=== PATIENT | female | born 1945 | race Caucasian/White ===

== ENCOUNTER 2019-04-23 10:09 | Outpatient (CLI) | payer MEDICARE, OTHER, SELFPAY ==
--- NOTE | 2019-04-23 10:17 | MM_ITS ---
WS: [id number] BILATERAL SCREENING DIGITAL MAMMOGRAM WITH CAD HISTORY: SCREENING COMPARISON: 03/26/2011 Bilateral CC and MLO views submitted. Computer aided detection analyzed. Breast composition: There are scattered areas of fibroglandular density. No suspicious masses, microc alcifications or architectural distortion. Benign calcifications in each breast. MM/[place] [id number] IMPRESSION: BI-RADS: 2-Benign FOLLOW UP: 1 Year Follow-up
== END 2019-04-23 10:10 | disposition home or self-care (01) ==
PROVIDERS: Family Provider Obstetrics & Gynecology; Visit Provider Physician Assistant
DX: Z12.31 Encounter for screening mammogram for malignant neoplasm of breast (principal)
CPT/HCPCS: 77067

== ENCOUNTER 2020-08-08 09:04 | Outpatient (CLI) | payer MEDICARE, OTHER, SELFPAY ==
[2020-08-08 09:29] VITALS: BMI 21.4
--- NOTE | 2020-08-08 09:53 | ECG_ITS ---
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 Interpretive Statements NAME OF STUDY: LEXISCAN SESTAMIBI STRESS TEST INDICATION: [sob on exertion, ] Procedure: At the baseline, the blood pressure was 155/96 mmHg with a heart rate of 70 bpm. The electrocardiogram showed normal sinus rhythm, normal axis with T wave changes including T wave inversions in leads V3-V6. The Lexiscan was infused over a period of 20 seconds. A total of 0.4 mg of Lexiscan was infused. The stress phase was continued for a total of 5 minutes. Heart rate was at the end of stress phase was 93 bpm and a blood pressure of 148/69 mmHg. The EKG at the peak infusion revealed since normal sinus rhythm with development of left bundle branch block related to tachycardia. Sestamibi was injected 20 seconds after the Lexiscan infusion. Blood pressure at the end of recovery phase was 142/68 mmHg with a heart rate of 87 bpm. Conclusion: 1. Normal EKG response to Lexiscan infusion 2. No Lexiscan induced chest pain or cardiac arrhythmia. 3. Normal blood pressure and heart rate response. 4. Sestamibi/sestamibi perfusion scan pending; see separate report. Electronically Signed On 09-25-2020 17:59:38 CDT by Marvel Spence M.D. [email or web address] [facility].[email or web address]/store/[id number]
--- NOTE | 2020-08-08 09:54 | NMCV_ITS ---
NM bri perf SPECT r/s* [id number] Kisha Thomas Age: 74 Gender: F : 1945 Exam Date: 08/08/2020 09:54 Ordering Phys: Vania Ridley Technologist: JOSETTE De Leon Exam Location: [facility] Indications: SOB on exertion STRESS TEST Please see separate stress test report in [facility] for full findings IMAGE PROTOCOL Rest/Stress 1 Lexiscan Day Radiopharmaceutical Dose (mCi) Administration Site Administered by Rest: Tc-99m 11.0 IV JOSETTE De Leon Sestamibi Stress:Tc-99m 32.3 IV JOSETTE Plummer Sestamibi Rest: 08-Aug-2020 60 Discovery 630 Stress: 08-Aug-2020 30 Discovery 630 0.4mg Lexiscan. Images obtained in supine and prone position. SPECT RESULTS Technical Quality: Excellent Raw Data Analysis: Normal Image Corrections: No attenuation or motion correction applied Summed Stress Score: 1 Summed Rest Score: 7 Summed Difference Score: 0 PERFUSION FINDINGS There is homogenous uptake of radiotracer throughout the myocardium. Decreased uptake of radiotracer in the apical, apical lateral and apical inferior colon on rest that resolved with stress, likely artifact FUNCTIONAL RESULTS (calculated via Gated SPECT) Stress Image LV EF (%): 65 Stress EDV (mL):69 TID: 1.03 Stress ESV (mL):24 FUNCTIONAL FINDINGS: There is normal left ventricular systolic function. IMPRESSIONS 1. Normal myocardial perfusion image without evidence of ischemia 2. LV systolic function is normal Marvel Spence MD (Electronically Signed) Final Date: 09 August 2020 10:23 S
[2020-08-08] MEDS: regadenoson 0.4 Mg/5 ml Syringe IVP (12:01)
--- NOTE | 2020-08-08 12:02 | PC.NURSE ---
pt hooked to ekg, lbbb rhythm appeared, called dwayne butler and received verbal order for lexiscan. pt converted to normal rhythm before start of lexiscan, withing a minute of pushing lexiscan she converted back into lbbb.
[2020-08-08 12:12] VITALS: BP 142/68; PULSE 86
== END 2020-08-08 09:05 | disposition home or self-care (01) ==
LOC: RAD 09:09 → CDL 09:53
PROVIDERS: PCP Physician Assistant; Visit Provider Physician Assistant
DX: R06.02 Shortness of breath (principal)
CPT/HCPCS: 78452; 93017; A9500; J2785

== ENCOUNTER 2020-09-01 09:10 | Outpatient (CLI) | payer MEDICARE, OTHER, SELFPAY ==
--- NOTE | 2020-09-01 09:30 | USCV_ITS ---
Kisha Thomas Age: 74 Gender: F : 1945 Exam Date: 09/01/2020 09:33 Ordering Phys: Marvel Spence M.D ([email or web address]) Technologist: Vania Reyes Exam Location: [facility] – [place] Indication: SOB BP: 140 / 70 HR: 61 Rhythm: Sinus Technical Quality: Adequate MEASUREMENTS (Male / Female) Normal Values 2D ECHO LV Diastolic Diameter PLAX 4.0 cm 4.2 - 5.9 / 3.9 - 5.3 cm LV Systolic Diameter PLAX 2.8 cm IVS Diastolic Thickness 1.7 cm 0.6 - 1.0 / 0.6 - 0.9 cm IVS Systolic Thickness 2.4 cm LVPW Diastolic Thickness 1.4 cm 0.6 - 1.0 / 0.6 - 0.9 cm LVPW Systolic Thickness 1.9 cm LVOT Diameter 2.0 cm LV Ejection Fraction 2D Teich 57.0 % LV Ejection Fraction MOD 2C 54.6 % LV Ejection Fraction 2C AL 53.2 % LA Diameter 2.6 cm LA Width 2.3 cm LA Height 2.4 cm RA Width 2.1 cm RA Height 2.5 cm Aorta at Sinotubular Diameter 3.0 cm M-MODE LV Diastolic Diameter MM 4.6 cm 4.2 - 5.9 / 3.9 - 5.3 cm LV Systolic Diameter MM 3.3 cm LV Ejection Fraction MM Teich 54.9 % IVS Diastolic Thickness MM 1.3 cm 0.6 - 1.0 / 0.6 - 0.9 cm IVS Systolic Thickness MM 1.8 cm LVPW Diastolic Thickness MM 1.1 cm 0.6 - 1.0 / 0.6 - 0.9 cm LVPW Systolic Thickness MM 1.3 cm Aortic Annulus Diameter 2.8 cm LA Ao Ratio MM 0.9 MV E Point Septal Separation 0.6 cm DOPPLER AV Peak Velocity 90.0 cm/s LVOT Peak Velocity 67.0 cm/s AV Area Cont Eq vti 2.1 cm squared AV Area Cont Eq pk 2.4 cm squared MV Peak Velocity 104.0 cm/s MV Area PHT 5.1 cm squared Mitral E to A Ratio 0.9 MV E' Velocity 77.0 cm/s TR Peak Velocity 239.8 cm/s TR Peak Gradient 23.0 mmHg TR Mean Velocity 190.9 cm/s TR Mean Gradient 15.9 mmHg TR Velocity Time Integral 80.3 cm TV Peak E Velocity 53.0 cm/s Right Atrial Pressure 3.0 mmHg Pulmonary Artery Systolic Pressu 26.0 mmHg PV Peak Velocity 79.0 cm/s RV Acceleration Time 0.1 s RV Ejection Time 0.3 s RV AcT/ET 0.3 FINDINGS Left Ventricle Normal left ventricular size. LV systolic function is borderline normal with EF of 50-55%. No regional wall motion abnormalities. Right Ventricle The right ventricle is normal in size and function. Right Atrium The right atrium is normal in size. Left Atrium The left atrium is normal in size. Mitral Valve Structurally normal mitral valve without significant stenosis or prolapse. There is mild mitral regurgitation. Aortic Valve Structurally normal aortic valve without significant sclerosis or stenosis. There is mild to moderate aortic regurgitation. Tricuspid Valve Structurally normal tricuspid valve without significant stenosis. Mild tricuspid regurgitation. RVSP is 25-30mmHg. Pulmonary artery systolic pressure is normal. Pulmonic Valve Structurally normal pulmonic valve without significant stenosis. There is mild pulmonic regurgitation. Pericardium Normal pericardium without effusion. Aorta Normal ascending aorta dimension. CONCLUSIONS LV systolic function is normal with EF of 50-55%. Mild mitral regurgitation Mild to moderate aortic regurgitation Mild pulmonary regurgitation No comparison studies are available Marvel Spence MD (Electronically Signed) Final Date: 05 September 2020 18:22 S
== END 2020-09-01 09:11 | disposition home or self-care (01) ==
LOC: US 09:11
PROVIDERS: PCP Physician Assistant; Visit Provider Internal Medicine
DX: R06.02 Shortness of breath (principal); I08.0 Rheumatic disorders of both mitral and aortic valves
CPT/HCPCS: 93306

== ENCOUNTER → 2020-10-26 13:40 | Outpatient (BNVA) | payer MEDICARE, OTHER, SELFPAY | PROVIDERS: PCP Physician Assistant; Visit Provider Internal Medicine | DX: I10 Essential (primary) hypertension (principal); R06.02 Shortness of breath; I44.7 Left bundle-branch block, unspecified; R06.00 Dyspnea, unspecified; I35.1 Nonrheumatic aortic (valve) insufficiency | CPT/HCPCS: 84439; 84443 ==

== ENCOUNTER 2022-05-10 09:19 | Emergency (ER) | payer MEDICARE, OTHER, SELFPAY ==
--- NOTE | 2022-05-10 09:28 | ECG_ITS ---
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 Measurements Intervals Marion Rate: 71 P: 41 MA: 142 QRS: 18 QRSD: 102 T: 43 QT: 377 QTc: 411 Interpretive Statements SINUS RHYTHM NONSPECIFIC T-WAVE ABNORMALITY No previous ECG available for comparison Electronically Signed On 05-10-2022 23:37:46 CELL SUPPORT OPERATOR by Renaldo Cornelius M.D. [email or web address] Discovery[facility].[employer]O/store/[id number]
--- NOTE | 2022-05-10 09:28 | XR_ITS ---
WS: [id number] Portable AP upright chest, 05/10/2022 Clinical Data: dyspnea/cough Comparison: Two-view chest, 07/14/2020 Findings: There is a faint patchy right lower lobe opacity which could represent atelectasis and/or m inimal pneumonia. The left lung is clear. No nodules, masses or effusions are seen. The heart is norm al. The aortic arch and descending thoracic aorta show mild calcification and tortuosity. There are m onitor leads on the chest wall. There is a dextroscoliosis of the thoracic spine. XR/XR chest 1V portable [id number] Impression: 1. Minimal right lower lobe opacity which could represent atelectasis and/or pn eumonia. 2. Atherosclerosis.
[2022-05-10 09:30] VITALS: BP 173/93; PULSE 66; RESP 15; O2SAT 96; BMI 21.4
--- NOTE | 2022-05-10 09:56 | ED_ITS ---
HPI - General Adult General: Chief complaint: Altered Mental Status Stated complaint: cough/AMS/sweats Time Seen by Provider: 05/10/22 09:27 Source: patient Mode of arrival: ambulatory History of Present Illness: 76-year-old female who is a very poor historian. For initially tells me she just does not feel well and is unable to expound on much delay start doing her review of systems with her. Have been able to get out of her that she has had some memory issues recently difficulty sleeping and a mild nonproductive cough that is new and different. She generally feels weak but has no specific areas of weakness she has been able to ambulate but feels very unsteady on her feet no falls no chest pain no abdominal pain no dysuria urgency or frequency. Onset (ago): day(s) (5) Severity: mild Relieving factors: none Exacerbating factors: none Associated symptoms: Reports cough, malaise, nausea, short of breath and other (Dizziness); Deny chest pain, confusion, diaphoresis, decreased appetite, dyspnea, fevers/chills, headache(s), rash, palpitations, seizures, syncope, vomiting or weakness Treatments prior to arrival: none Review of Systems Const: Reports: malaise; Denies: fever(s), chills or diaphoresis ENMT: Denies: throat pain, ear or mastoid pain, nasal discharge or nasal congestion Card: Denies: chest pain, palpitations or syncope Resp: Denies: dyspnea GI: Reports: nausea; Denies: vomiting : Denies: flank pain, difficulty voiding, dysuria, urinary frequency or urinary urgency Skin/Breast: Denies: rash Neuro: Reports: difficulty walking and dizziness; Denies: headache(s) or confusion PFSH ED PFSH: Medical History Aortic regurgitation Hypertension Left bundle branch block Family History Father CAD (coronary artery disease) Mother CAD (coronary artery disease) Social History Smoking and tobacco status: never smoked Alcohol intake: never Physical Exam Const: GENERAL APPEARANCE: cooperative and comfortable ORIENTATION/CONSCIOUSNESS: Yes awake, Yes oriented to person, Yes oriented to place and Yes oriented to time HENMT: COMMON NORMALS: normocephalic, atraumatic and hearing grossly normal bilaterally HEAD & SCALP: normocephalic and atraumatic Resp: COMMON NORMALS: normal respiratory effort, No retractions, No use of accessory muscles and clear to auscultation bilaterally AUSCULTATION: clear to auscultation bilaterally Cardio: COMMON NORMALS: regular rate, regular rhythm and No murmurs present (Cardio) RATE: regular rate RHYTHM: regular rhythm GI: COMMON NORMALS: Soft to palpation and No hepatosplenomegaly present AUSCULTATION: Yes normoactive bowel sounds PALPATION: Yes Soft to palpation, No Tenderness to palpation present (GI), No Guarding due to palpation present (GI) and Yes No hepatosplenomegaly present Extremity: COMMON NORMALS: normal to inspection, capillary refill normal, no clubbing, cyanosis or edema, no calf tenderness and no pedal edema Neuro: SENSORIUM/ORIENTATION: Yes oriented to person, Yes oriented to place and Yes oriented to time Skin: COMMON NORMALS: no rashes or lesions noted GENERAL SKIN EXAM: no rashes or lesions noted Course Vital Signs: Vital signs: Vital Signs Pulse Rate 78 05/10/22 13:49 Respiratory Rate 16 05/10/22 13:49 Blood Pressure 148/81 05/10/22 13:49 Pulse Oximetry 93 05/10/22 13:49 Oxygen Delivery Me thod 05/10/22 09:30 MDM - General Adult Medical Decision Making Labs imaging and EKG reviewed cardiac enzymes negative EKG does not show any acute changes neurologically she is fully intact there is no sign of any neurologic deficits suggestive of stroke. We will discharge the patient home. Have her follow-up with her primary care doctor if she has further concerns about cognitive issues she may need to be further evaluated. Return if she has further problems for Medical Records I reviewed the patient's medical records. Lab Data I reviewed the patient's lab results. 05/10/22 10:00 05/10/22 10:00 Radiology Impressions Chest X-Ray 05/10/22 09:28 Impression: 1. Minimal right lower lobe opacity which could represent atelectasis and/or pneumonia. 2. Atherosclerosis. Laboratory Results WBC 7.0 10^3/uL (4.0-10.0) 05/10/22 10:00 RBC 4.36 10^6/uL (4.1-5.3) 05/10/22 10:00 Hgb 12.8 g/dL (11.5-15.3) 05/10/22 10:00 Hct 38.8 % (37.0-47.0) 05/10/22 10:00 MCV 89.0 fl (81-99) 05/10/22 10:00 MCH 29.4 pg (28.0-34.0) 05/10/22 10:00 MCHC 33.0 g/dL (30.0-36.0) 05/10/22 10:00 RDW 12.7 % (12.1-15.1) 05/10/22 10:00 Plt Count 214 10^3/cmm (130-400) 05/10/22 10:00 MPV 10.7 fL (7.4-10.4) H 05/10/22 10:00 Neut % (Auto) 73.7 % 05/10/22 10:00 Lymph % (Auto) 16.5 % 05/10/22 10:00 Blaine % (Auto) 6.4 % 05/10/22 10:00 Eos % (Auto) 0.4 % 05/10/22 10:00 Baso % (Auto) 0.6 % 05/10/22 10:00 Neut # (Auto) 5.15 10^3/uL (1.8-7.7) 05/10/22 10:00 Lymph # (Auto) 1.2 10^3/uL (0.8-4.8) 05/10/22 10:00 Blaine # (Auto) 0.5 10^3/uL (0.2-0.9) 05/10/22 10:00 Eos # (Auto) 0.0 10^3/uL (0.0-0.8) 05/10/22 10:00 Baso # (Auto) 0.0 10^3/uL (0.0-0.1) 05/10/22 10:00 Nucleated RBC % (auto) 0 % 05/10/22 10:00 Nucleated RBCs # 0.0 /100WBC 05/10/22 10:00 Specimen Type Arterial 05/10/22 10:10 Sample Site Radial, right 05/10/22 10:10 ABG pH 7.46 (7.35-7.45) H 05/10/22 10:10 ABG pCO2 34.5 mmHg (35-45) L 05/10/22 10:10 ABG pO2 70.8 mmHg (80.0-100.0) L 05/10/22 10:10 ABG HCO3 24.4 mmol/L (22-26) 05/10/22 10:10 ABG O2 Saturation 95.8 05/10/22 10:10 ABG Base Excess 0.9 mmol/L (-2.0-2.0) 05/10/22 10:10 Jacobo Test Pos 05/10/22 10:10 A-a O2 Gradient 4.7 mmHg (5-10) L 05/10/22 10:10 Hematocrit 37.7 % (37-47) 05/10/22 10:10 Hgb O2 Saturation 94.6 % (95-100) L 05/10/22 10:10 Carboxyhemoglobin 1.0 %THgb (0.4-20.1) 05/10/22 10:10 Methemoglobin 0.3 % (0.4-1.5) L 05/10/22 10:10 Total Hemoglobin 12.3 g/dL (12-16) 05/10/22 10:10 Sodium 141.0 mmol/L (131-143) 05/10/22 10:10 Potassium 3.5 mmol/L (3.5-5.0) 05/10/22 10:10 Glucose 112.0 mg/dL (70-115) 05/10/22 10:10 Ionized Calcium 1.2 mmol/L (1.1-1.4) 05/10/22 10:10 O2 Delivery Device Room air 05/10/22 10:10 FiO2 21.0 % 05/10/22 10:10 Hr Manager ID glc 05/10/22 10:10 Sodium 139 mmol/L (136-145) 05/10/22 10:00 Potassium 3.4 mmol/L (3.5-5.1) L 05/10/22 10:00 Chloride 101 mmol/L (98-107) 05/10/22 10:00 Carbon Dioxide 25 mmol/L (22-29) 05/10/22 10:00 Anion Gap 16.4 (5-19) 05/10/22 10:00 BUN 17 mg/dL (8-23) 05/10/22 10:00 Creatinine 0.6 mg/dL (0.5-0.9) 05/10/22 10:00 GFR Calculation Not Reportable 05/10/22 10:00 Glucose 113 mg/dL (65-115) 05/10/22 10:00 Calculated Osmolality 290 mOsm/kg (285-295) 05/10/22 10:00 Calcium 9.3 mg/dL (8.5-10.5) 05/10/22 10:00 Total Bilirubin 0.7 mg/dL (0.15-1.2) 05/10/22 10:00 AST 20 U/L (0-32) 05/10/22 10:00 ALT 14 U/L (0-33) 05/10/22 10:00 Alkaline Phosphatase 104 U/L (35-105) 05/10/22 10:00 Troponin T Baseline 6 ng/L (0-10) 05/10/22 10:00 Troponin T 120 Minute 6.00 ng/L (0-10) 05/10/22 12:06 Delta Troponin T 0 ABS# (0-10) 05/10/22 12:06 Total Protein 7.4 g/dL (6.6-8.7) 05/10/22 10:00 Albumin 4.0 g/dL (3.5-5.2) 05/10/22 10:00 Globulin 3.4 g/dL (1.3-4.6) 05/10/22 10:00 Discharge Plan Discharge Patient Disposition: Home Clinical Impression: Weakness, Hypertension, Memory loss Condition: Stable Prescriptions: No Action No Known Home Medications Discharge Orders: Discharge ED (Routine); Ordered 05/10/22 Ordered By: Wood Cohen Referrals: Vania Ridley PA [Primary Care Provider] - Discharge Diet: Usual diet Discharge Activity: Increase activity as tolerated Patient Instructions: Opioid Safety, Pain Management Activity Restrictions/Additional Instructions: You are seen today with a complaint of generalized weakness. Your cardiac enzymes CBC and electrolytes were all normal. Chest x-ray was unremarkable. Neurologic exam was not indicative of a stroke. We will discharge you home for now and have you follow-up with your primary care doctor if you continue to have memory issues you should follow-up your primary care doctor who can further evaluate. Coding Level of Care Code ED Food And Beverage Associate for Mathew Temple
[2022-05-10 10:15] LABS: Basophils % 0.6 %; Eosinophils % 0.4 %; Hematocrit 38.8 % (37.0-47.0); Hemoglobin 12.8 g/dL (11.5-15.3); Lymphocytes # 1.2 10^3/uL (0.8-4.8); Lymphocytes % 16.5 %; Mean Corpuscular Hemoglobin 29.4 pg (28.0-34.0); Mean Platelet Volume 10.7 fL (7.4-10.4); Monocytes # 0.5 10^3/uL (0.2-0.9); Monocytes % 6.4 %; Neutrophils # 5.15 10^3/uL (1.8-7.7); Neutrophils % 73.7 %; Nucleated Red Blood Cells % 0 %; Platelet Count 214 10^3/cmm (130-400); Red Blood Count 4.36 10^6/uL (4.1-5.3); Red Cell Distribution Width 12.7 % (12.1-15.1)
[2022-05-10 10:19] LABS: ABG PCO2 34.5 mmHg (35-45); ABG PH Result 7.46 (7.35-7.45); Alveolar-Arterial Oxygen Gradi 4.7 mmHg (5-10); Arterial Blood Gas Hematocrit 37.7 % (37-47); Base Excess ABG 0.9 mmol/L (-2.0-2.0); Blood Gas Allen Test Pos; Blood Gas Operator Identificat glc; Blood Gas Sample Site Radial, right; Blood Gas Sample Type Arterial; HCO3 ABG 24.4 mmol/L (22-26); HGB O2 Sat 94.6 % (95-100); Ionized Calcium Level - ABG 1.2 mmol/L (1.1-1.4); Methemoglobin 0.3 % (0.4-1.5); Oxygen Device ROOM AIR; Oxygen Saturation ABG 95.8; PO2 ABG 70.8 mmHg (80.0-100.0); Potassium Level - ABG 3.5 mmol/L (3.5-5.0); Total Hemoglobin 12.3 g/dL (12-16)
--- NOTE | 2022-05-10 10:22 | PC.PHAR ---
pt and pts friend states the pt takes no medications-[facility] amlodipine 10mg daily on 10/18/21 90d/s-[facility] states not filled medications for the pt
[2022-05-10 10:35] LABS: Alanine Aminotransferase 14 U/L (0-33); Alkaline Phosphatase 104 U/L (35-105); Anion Gap 16.4 (5-19); Aspartate Amino Transferase 20 U/L (0-32); Blood Urea Nitrogen 17 mg/dL (8-23); Calcium 9.3 mg/dL (8.5-10.5); Carbon Dioxide 25 mmol/L (22-29); Chloride 101 mmol/L (98-107); Globulin 3.4 g/dL (1.3-4.6); Glucose 113 mg/dL (65-115); Osmolality Calculated 290 mOsm/kg (285-295); Potassium 3.4 mmol/L (3.5-5.1); Sodium 139 mmol/L (136-145); Total Bilirubin 0.7 mg/dL (0.15-1.2); Total Protein 7.4 g/dL (6.6-8.7)
[2022-05-10 11:18] LABS: Troponin(5th) Baseline 6 ng/L (0-10)
--- NOTE | 2022-05-10 12:58 | ECG_ITS ---
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 Measurements Intervals Rayle Rate: 63 P: 52 MN: 131 QRS: 17 QRSD: 111 T: 10 QT: 409 QTc: 421 Interpretive Statements SINUS RHYTHM MODERATE INTRAVENTRICULAR CONDUCTION DELAY [110+ ms QRS DURATION] Compared to ECG 05/10/2022 09:50:44 Intraventricular conduction delay now present T-wave abnormality no longer present Electronically Signed On 05-10-2022 23:53:04 SCHOOL OCCUPATIONAL THERAPIST by Renaldo Cornelius M.D. [id number]
[2022-05-10 13:13] LABS: Troponin 5 2HR Delta 0 ABS# (0-10)
[2022-05-10 13:25] VITALS: BP 128/73; PULSE 84; RESP 16; O2SAT 94
[2022-05-10 13:49] VITALS: BP 148/81; PULSE 78; RESP 16; O2SAT 93
== END 2022-05-10 13:51 | disposition home or self-care (01) ==
PROVIDERS: Emergency Provider Family Medicine; PCP Physician Assistant
DX: R53.1 Weakness (principal); I10 Essential (primary) hypertension; R41.3 Other amnesia; I70.90 Unspecified atherosclerosis
CPT/HCPCS: 36415; 36600; 71045; 80051; 80053; 82330; 82805; 84484; 85025; 87040; 93005; 99285

== ENCOUNTER → 2022-06-19 08:45 | Outpatient (BNVA) | payer MEDICARE, OTHER, SELFPAY | PROVIDERS: PCP Physician Assistant; Referring Provider Physician Assistant; Visit Provider Dermatology | DX: C44.41 Basal cell carcinoma of skin of scalp and neck (principal); D23.39 Other benign neoplasm of skin of other parts of face; L57.0 Actinic keratosis; L82.1 Other seborrheic keratosis; D22.9 Melanocytic nevi, unspecified; L57.8 Other skin changes due to chronic exposure to nonionizing radiation; L81.4 Other melanin hyperpigmentation ==

== ENCOUNTER 2022-07-11 09:00 | Outpatient (CLI) | payer MEDICARE, OTHER, SELFPAY ==
--- NOTE | 2022-07-11 09:13 | MR_ITS ---
WS: [id number] MRI BRAIN WITH AND WITHOUT CONTRAST HISTORY: ALTERED MENTAL STATUS COMPARISON: None available. TECHNIQUE: Multiplanar imaging performed through the brain with MultiHance 12 ml's IV. No acute infarcts are seen. Myers-white matter differentiation is well preserved. There are very few s mall T2 and FLAIR signal hyperintensities related to small vessel ischemic disease. Slightly greater distribution LEFT frontal lobe. No large territory infarct. Very minimal atrophy and volume loss. No susceptibility artifacts or prior lacunar infarcts. Ventricles and extra-axial spaces are normal. Clivus and pituitary gland are normal. Visualized posterior fossa and brainstem are also normal. Postcontrast images are negative for masses or vascular malformations. Dural venous sinuses are normal. Paranasal sinuses: Well aerated with no significant disease. Mastoid air cells: Normal. Calvarium and scalp: Normal. MR/MR head wo/w con [id number] IMPRESSION: 1. Normal diffusion imaging. No evidence for an acute infarct. 2. Very minimal small vessel ischemic type changes appropriate for the patient 's age. 3. No mass or abnormal enhancement.
[2022-07-11] MEDS: gadobenate dimeglumine 20 mL vial IV (10:53)
== END 2022-07-11 09:01 | disposition home or self-care (01) ==
LOC: RAD 09:06
PROVIDERS: PCP Physician Assistant; Visit Provider Physician Assistant
DX: R41.82 Altered mental status, unspecified (principal)
CPT/HCPCS: 70553; A9577

== ENCOUNTER → 2022-07-16 07:55 | Outpatient (BNVA) | payer MEDICARE, OTHER, SELFPAY | PROVIDERS: PCP Physician Assistant; Visit Provider Dermatology | DX: C44.41 Basal cell carcinoma of skin of scalp and neck (principal) | CPT/HCPCS: 12042; 17311; 17312 ==

== ENCOUNTER → 2022-07-27 08:03 | Outpatient (BNVA) | payer MEDICARE, OTHER, SELFPAY | PROVIDERS: PCP Physician Assistant; Visit Provider Dermatology | DX: Z48.02 Encounter for removal of sutures (principal) | CPT/HCPCS: 99024; 99212 ==

== ENCOUNTER → 2023-06-17 09:24 | Outpatient (BNVA) | payer MEDICARE, OTHER, SELFPAY | PROVIDERS: PCP Physician Assistant; Visit Provider Nurse Practitioner Family | DX: L57.0 Actinic keratosis (principal); L82.1 Other seborrheic keratosis; L81.4 Other melanin hyperpigmentation; L57.8 Other skin changes due to chronic exposure to nonionizing radiation; Z85.828 Personal history of other malignant neoplasm of skin | CPT/HCPCS: 17000; 99213 ==

== ENCOUNTER → 2024-06-16 08:43 | Outpatient (BNVA) | payer MEDICARE, OTHER, SELFPAY | PROVIDERS: PCP Physician Assistant; Visit Provider Nurse Practitioner Family | DX: L82.1 Other seborrheic keratosis (principal); L81.4 Other melanin hyperpigmentation; L57.8 Other skin changes due to chronic exposure to nonionizing radiation; Z08 Encounter for follow-up examination after completed treatment for malignant neoplasm; Z85.828 Personal history of other malignant neoplasm of skin; L57.0 Actinic keratosis | CPT/HCPCS: 17000; 99213 ==

== ENCOUNTER 2025-03-02 08:42 | Outpatient (CLI) | payer MEDICARE, OTHER, SELFPAY ==
--- NOTE | 2025-03-02 08:50 | CT_ITS ---
WS: [id number] CT ABDOMEN AND PELVIS WITH CONTRAST HISTORY: UPPER ABDOMINAL PAIN TECHNIQUE: Imaging performed of the abdomen and pelvis with IV contrast. Single phase imaging of the abdomen. Coronal and sagittal reformats are submitted. All CT scans at [facility] use at least one of these dose optimization techniques: automated exposure control; mA and/or kV adjustment per patient size (includes targeted exams where dose is matched to clinical indication); or iterative reconstruction. IV CONTRAST: Omnipaque 350; 100 mL IV. Oral contrast: Yes. DLP: 281.69 mGy.cm COMPARISON: None available. Lower thorax: Lung bases are clear. Heart is normal size. No hiatal hernia. Liver/biliary system: Normal size with no intrahepatic dilatation. Gallbladder: Normally distended gallbladder with a large stone in the lumen. Stone measures 2.7 cm in diameter. No acute cholecystitis. Common bile duct is normal size. Pancreas: Normal size pancreas and pancreatic duct. No adjacent inflammation. Spleen: Normal size spleen. No mass or infarct. Splenule. Adrenal glands: Normal. Right kidney: Normal size kidney. Small extrarenal pelvis. No hydronephrosis. Left kidney: Normal size kidney. Fullness in the renal pelvis. No calyceal dilatation. Extrarenal pelvis and parapelvic cysts. Aorta: Mild atherosclerosis with no aneurysm. Lymphadenopathy: None. Free fluid: None. GI tract: Stomach is well distended with oral contrast. No small bowel obstruction. Diffuse moderate constipation. No evidence for appendicitis or colitis. No GI tract obstruction. Sigmoid diverticular disease. No evidence for acute diverticulitis. Abdominal wall: Unremarkable abdominal wall. No hernia. Pelvis: No free fluid or adenopathy within the pelvis. Prior hysterectomy. Bones: Advanced degenerative changes in the lumbar spine. Degenerative scoliosis. Disc spaces are narrowed and desiccated. No fractures. CT/CT abdomen pelvis w con* [id number] IMPRESSION: 1. No acute abdominal or pelvic abnormalities. 2. Moderate diffuse constipation without obstruction. 3. Sigmoid diverticulosis without acute diverticulitis. 4. Cholelithiasis. Large stone in the gallbladder without acute cholecystitis. 5. Fullness in the renal pelves most consistent with parapelvic cysts and extr arenal pelves. 6. Prior hysterectomy.
[2025-03-02] MEDS: iohexol 350 mg/mL 500 mL Btl (per mL) PO (09:08)
[2025-03-02 10:01] LABS: Blood Urea Nitrogen 13 mg/dL (8-23)
[2025-03-02] MEDS: iohexol 350 mg/mL 500 mL Btl (per mL) IV (10:09)
== END 2025-03-02 08:43 | disposition home or self-care (01) ==
LOC: RAD 08:45
PROVIDERS: PCP Physician Assistant; Visit Provider Physician Assistant
DX: K80.20 Calculus of gallbladder without cholecystitis without obstruction (principal); N28.89 Other specified disorders of kidney and ureter; K59.00 Constipation, unspecified; K57.30 Diverticulosis of large intestine without perforation or abscess without bleeding; Z90.710 Acquired absence of both cervix and uterus; M51.369 Other intervertebral disc degeneration, lumbar region without mention of lumbar back pain or lower extremity pain; M41.9 Scoliosis, unspecified
CPT/HCPCS: 74177; 82565; 84520